=== PATIENT | male | born 1990 | race Caucasian/White ===

== ENCOUNTER 2017-01-06 17:48 | Emergency (ER) | payer MEDICAID ==
[~2017-01-06] VITALS: Ht 195.6 cm; Wt 79.8 kg
[~2017-01-06 17:48] MED LIST: AGM875T PO; BUSP5TAB59 PO; DIVA500T7 PO; DOCU100T2 PO; LACO150T3 PO; LEVO137T17 PO; MONT10TA24 PO; SENN1TAB76 PO; SERT100T PO; TRAZ-144 PO
--- OUTSIDE RECORDS SUMMARY | 2017-01-06 17:54 | XMS REPORT ---
Author MIRTA Enriquez e[employer] Address Unknown Phone Unavailable Care Team Providers Care Label Remover Name Role Phone MIRTA HERRING CP Unavailable Allergies, Adverse Reactions, Alerts Substance Reaction Event Type N.K.D.A. Info Not Available Non Drug Allergy Problems Problem Type Condition Code Onset Dates Condition Status Assessment Encounter for dental examination Z01.20 Active Problem Encounter for dental examination Z01.20 Active Medications Medication Code System Code Instructions Start Date End Date Status Dosage Tab-A-Sarah [facility] [address]-13 Orally Once a day 1 tablet Trazodone HCl [facility] [address]-40 50 MG Orally Once a day 1 tablet at bedtime as needed Sertraline HCl [facility] [address]-01 100 MG Orally Once a day 1 tablet Senna [facility] [address]-94 8.6 MG Orally Once a day 2 tablets at bedtime as needed Divalproex Sodium [facility] [address]-79 500 MG Orally Once a day 1 tablet Montelukast Sodium [facility] [address]-36 10 MG Orally Once a day 1 tablet in the evening Levothyroxine Sodium [facility] [address]-35 137 MCG Orally Once a day 1 tablet Docusate Sodium [facility] [address]-49 100 MG Orally Once a day 1 capsule as needed Vimpat [facility] [address]-10 100 MG Orally Once a day 1 tablet Procedures Procedure Coding System Code Date TOPICAL FLUORIDE VARNISH CPT-4 D1206 Dec 14, 2015 PROPHYLAXIS - ADULT CPT-4 D1110 Dec 14, 2015 Vital Signs Date/Time: Dec 14, 2015 Blood Pressure Diastolic 68 mmHg Blood Pressure Systolic 115 mmHg Cardiac Monitoring Heart Rate 67 bpm Results No Known Results Summary Purpose eClinicalWorks Submission
--- OUTSIDE RECORDS SUMMARY | 2017-01-06 17:55 | XMS REPORT ---
Author Author SAAD TYLER [facility] e[employer] Address Unknown Phone Unavailable Care Team Providers Care Ultrasound Tech Name Role Phone SAAD TYLER CP Unavailable Allergies, Adverse Reactions, Alerts Substance Reaction Event Type N.K.D.A. Info Not Available Non Drug Allergy Problems Problem Type Condition Code Onset Dates Condition Status Assessment Dental examination Z01.20 Active Medications Medication Code System Code Instructions Start Date End Date Status Dosage Senna [facility] [address]-59 8.6 MG Orally Once a day 2 tablets at bedtime as needed Trazodone HCl [facility] [address]-52 50 MG Orally Once a day 1 tablet at bedtime as needed Montelukast Sodium [facility] [address]-98 10 MG Orally Once a day 1 tablet in the evening Divalproex Sodium [facility] [address]-91 500 MG Orally Once a day 1 tablet Vimpat [facility] [address]-27 100 MG Orally Once a day 1 tablet Sertraline HCl [facility] [address]-61 100 MG Orally Once a day 1 tablet Docusate Sodium [facility] [address]-00 100 MG Orally Once a day 1 capsule as needed Levothyroxine Sodium [facility] [address]-12 137 MCG Orally Once a day 1 tablet Tab-A-Sarah [facility] [address]-68 Orally Once a day 1 tablet Procedures Procedure Coding System Code Date Billing Notes on claim CPT-4 EC109 August 04, 2015 [facility] SURFACE [facility]/PERM CPT-4 D2140 August 04, 2015 Vital Signs Date/Time: August 04, 2015 Blood Pressure Diastolic 90 mmHg Blood Pressure Systolic 131 mmHg Results No Known Results Summary Purpose eClinicalWorks Submission
--- OUTSIDE RECORDS SUMMARY | 2017-01-06 17:55 | XMS REPORT ---
Author Author HOLDEN HADDAD [facility] Address [address] [place] [address] Care Team Providers Care Virtual Assistant Name Role Phone HOLDEN HADDAD Unavailable PROBLEMS Type Condition ICD9-CM Code [id number] Code Onset Dates Condition Status SNOMED Code Problem Dental examination Z01.20 Active 014234210 ALLERGIES No Known Allergies SOCIAL HISTORY Never Assessed PLAN OF CARE Activity Details Follow Up 6 Months Reason:dental hygiene recare. VITAL SIGNS Blood pressure systolic 130 mmHg 2016 Blood pressure diastolic 93 mmHg 2016 MEDICATIONS Medication Instructions Dosage Frequency Start Date End Date Duration Status Senna 8.6 MG Orally Once a day 2 tablets at bedtime as needed 24h Active Tab-A-Sarah Orally Once a day 1 tablet 24h Active Docusate Sodium 100 MG Orally Once a day 1 capsule as needed 24h Active BusPIRone HCl Active Vimpat 100 MG Orally Once a day 1 tablet 24h Active Sertraline HCl 100 MG Orally Once a day 1 tablet 24h Active Trazodone HCl 50 MG Orally Once a day 1 tablet at bedtime as needed 24h Active Divalproex Sodium 500 MG Orally Once a day 1 tablet 24h Active Montelukast Sodium 10 MG Orally Once a day 1 tablet in the evening 24h Active Levothyroxine Sodium 137 MCG Orally Once a day 1 tablet 24h Active RESULTS No Results PROCEDURES Procedure Date Ordered Result Body Site INTRAORL-PERIAPICAL 1 FILM 49926 2016 BITEWINGS - FOUR FILMS 2016 TOPICAL FLUORIDE VARNISH 2016 PROPHYLAXIS - ADULT 2016 IMMUNIZATIONS No Known Immunizations MEDICAL (GENERAL) HISTORY Type Description Date Medical History Hypothyrodism Medical History Seizures Medical History unspecified mood disorder Medical History autism Medical History severe intellectual disorder Medical History anxiety
--- OUTSIDE RECORDS SUMMARY | 2017-01-06 17:56 | XMS REPORT | Continuity of Care Document ---
Author Author [facility] Organization [facility] Address Unknown Phone Unavailable Allergies Active Description Code Type Severity Reaction Onset Reported/Identified Relationship to Patient Clinical Status Yes No Known Drug Allergies [id number] Drug Allergy Unknown N/ A 08/29/2014 Medications Problems Date Dx Coded Attending Type Code Diagnosis Diagnosed By 08/29/2014 FELIPA ARCE APRN Ot 873.42 08/29/2014 FELIPA ARCE APRN Ot E000.8 08/29/2014 FELIPA ARCE APRN Ot E849.0 08/29/2014 FELIPA ARCE APRN Ot E968.7 08/29/2014 FELIPA ARCE APRN Ot V06.5 Procedures Results Encounters ACCT No. Visit Date/Time Discharge Status Pt. Type Provider Facility Loc./Unit Complaint [id number] 08/29/2014 10:20:00 2014 11:00:00 DIS Emergency FELIPA ARCE APRN [facility] ER [id number] 01/06/2017 17:51:00 ACT Emergency JACQUELINE BAKER MD [facility] ER FEVER
--- NOTE | 2017-01-06 18:44 | ED Fever ---
History of Present Illness General Chief Complaint: Fever-Adult/Adol Stated Complaint: FEVER Nursing Triage Note: caregiver reports pt sounded congested, felt hot, and looked like he didnt feel good. temp at home 101.8. tylenol 1000mg given lighter captain. instructed by [facility] RN to come to hospital. Sepsis Screen: Possible Sepsis Risk Source: patient, caregiver Exam Limitations: no limitations History of Present Illness Time seen by provider: 18:43 Initial Comments To ER accompanied by caregiver. Patient is a resident of [facility]. They noticed that he had a fever earlier today with nasal congestion. Maximum temperature 101.8. He received Tylenol just before coming to the emergency room. Timing/Duration: constant Fever Quality: greater than 100.5 F Fever Therapy STULL INSTALLER: Tylenol Allergies and Home Medications Allergies Coded Allergies: cefuroxime (Verified Allergy, Unknown, 01/06/17) Home Medications Amoxicillin/Clavulanate K 875 Mg Tab, 1 TAB PO BID, #14 Prescribed by: FELIPA ARCE on 08/29/14 1044 Buspirone Hcl 5 Mg Tab, 5 MG PO TID, (Reported) Cefdinir 300 Mg Capsule, 300 MG PO BID, #14 Prescribed by: FELIPA ARCE on 01/06/17 1949 Divalproex Sodium 500 Mg Tablet.dr, 500 MG PO TID, (Reported) Docusate Sodium 100 Mg Tablet, 100 MG PO DAILY, (Reported) Lacosamide 150 Mg Tablet, 100 MG PO BID, (Reported) Levothyroxine Sodium 137 Mcg Tablet, 137 MCG PO DAILY, (Reported) Montelukast Sodium 10 Mg Tablet, 10 MG PO DAILY, (Reported) Senna 1 Ea Tablet, 1 EA PO DAILY, (Reported) Sertraline Hcl 100 Mg Tablet, 100 MG PO DAILY, (Reported) Trazodone Hcl 50 Mg Tablet, 50 MG PO HS, (Reported) Constitutional: see HPI EENTM: see HPI Respiratory: no symptoms reported Cardiovascular: no symptoms reported Genitourinary: no symptoms reported Musculoskeletal: no symptoms reported Skin: no symptoms reported Psychiatric/Neurological: No Symptoms Reported Hematologic/Lymphatic: No Symptoms Reported Immunological/Allergic: no symptoms reported Past Doobany-Bplyof-Bknnym Hx Patient Social History Alcohol Use: Denies Use Recreational Drug Use: No Smoking Status: Never a Smoker Recent Foreign Travel: No Contact w/Someone Who Travel: No Recent Infectious Disease Expo: No Recent Hopitalizations: No Physical Abuse: No Sexual Abuse: No Mistreated: No Fear: No Seasonal Allergies Seasonal Allergies: Yes (chronic sinusitis) Surgeries History of Surgeries: No Respiratory History of Respiratory Disorde: No Cardiovascular History of Cardiac Disorders: No Neurological History of Neurological Disord: Yes Neurological Disorders: Seizure Disorder Genitourinary History of Genitourinary Disor: No Gastrointestinal History of Gastrointestinal Di: No Musculoskeletal History of Musculoskeletal Dis: No Endocrine History of Endocrine Disorders: Yes Endocrine Disorders: Hypothyroidsim HEENT History of HEENT Disorders: No Psychosocial History of Psychiatric Problem: Yes (autistic, affective disorder, severe intellectual disability) Behavioral Health Disorders: Sleep Difficulties, Anxiety, Depression Suicide Risk Score: 1 Integumentary History of Skin or Integumenta: No Physical Exam Vital Signs Vital Sign - Last 12Hours 01/06/17 18:02 Temp 100.0 Pulse 87 Resp 22 B/P (MAP) 131/96 Pulse Ox 98 O2 Delivery Room Air Capillary Refill : Less Than 3 Seconds General Appearance: WD/WN, no apparent distress Eyes: Bilateral Eye Normal Inspection, Bilateral Eye PERRL, Bilateral Eye EOMI HEENT: PERRL/EOMI, normal ENT inspection, TMs normal, pharyngeal erythema ( note uvular deviation to suggest peritonsillar abscess.) Neck: lymphadenopathy (R), lymphadenopathy (L) (left greater than right) Respiratory: normal breath sounds, no respiratory distress, no accessory muscle use Cardiovascular: regular rate, rhythm, no murmur Gastrointestinal: normal bowel sounds, non tender, soft Neurologic/Psychiatric: alert, normal mood/affect, oriented x 3 Skin: normal color, warm/dry Progress/Results/Core Measures Suspected Sepsis Recent Fever Within 48 Hours: Yes Infection Criteria Present: Suspected New Infection New/Unexplained Altered Menta: No Sepsis Screen: Possible Sepsis Risk Sepsis Diagnosis: SIRS Temperature:100.0 Pulse: 87 Respiratory Rate: 22 Laboratory Tests 01/06/17 19:30: White Blood Count 12.7H Blood Pressure 131 /96 Mean: 108 Laboratory Tests 01/06/17 19:30: Platelet Count 168 Results/Orders Lab Results Laboratory Tests Test 01/06/17 18:36 01/06/17 18:56 01/06/17 19:30 Range/Units Group A Streptococcus Screen NEGATIVE NEGATIVE Urine Color YELLOW Urine Clarity CLEAR Urine pH 8 5-9 Urine Specific Agate 1.010 L 1.016-1.022 Urine Protein NEGATIVE NEGATIVE Urine Glucose (UA) NEGATIVE NEGATIVE Urine Ketones 1+ H NEGATIVE Urine Nitrite NEGATIVE NEGATIVE Urine Bilirubin NEGATIVE NEGATIVE Urine Urobilinogen NORMAL NORMAL MG/DL Urine Leukocyte Esterase 1+ H NEGATIVE Urine RBC (Auto) NEGATIVE NEGATIVE Urine RBC NONE /HPF Urine WBC NONE /HPF Urine Squamous Epithelial Cells RARE /HPF Urine Crystals NONE /LPF Urine Bacteria NEGATIVE /HPF Urine Casts NONE /LPF Urine Mucus NEGATIVE /LPF Urine Culture Indicated NO White Blood Count 12.7 H 4.3-11.0 10^3/uL Red Blood Count 4.78 4.35-5.85 10^6/uL Hemoglobin 15.0 13.3-17.7 G/DL Hematocrit 42 40-54 % Mean Corpuscular Volume 87 80-99 FL Mean Corpuscular Hemoglobin 31 25-34 PG Mean Corpuscular Hemoglobin Concent 36 32-36 G/DL Red Cell Distribution Width 12.1 10.0-14.5 % Platelet Count 168 130-400 10^3/uL Mean Platelet Volume 10.1 7.4-10.4 FL Neutrophils (%) (Auto) 76 H 42-75 % Lymphocytes (%) (Auto) 13 12-44 % Monocytes (%) (Auto) 11 0-12 % Eosinophils (%) (Auto) 0 0-10 % Basophils (%) (Auto) 0 0-10 % Neutrophils # (Auto) 9.7 H 1.8-7.8 X 10^3 Lymphocytes # (Auto) 1.6 1.0-4.0 X 10^3 Monocytes # (Auto) 1.4 H 0.0-1.0 X 10^3 Eosinophils # (Auto) 0.0 0.0-0.3 10^3/uL Basophils # (Auto) 0.0 0.0-0.1 10^3/uL Monoscreen NEGATIVE NEGATIVE Micro Results Microbiology 01/06/17 Influenza Types A,B Antigen (DOROTEO) - Final, Complete My Orders Orders - FELIPA ARCE DIRECTOR RECREATION Cbc With Automated Diff (01/06/17 18:11) Influenza A And B Antigens (01/06/17 18:11) Monotest (01/06/17 18:11) Rapid Strep A Screen (01/06/17 18:11) Chest Pa/Lat (2 View) (01/06/17 18:11) Ua Culture If Indicated (01/06/17 18:11) Cephalexin Capsule (Keflex Capsule) (01/06/17 20:00) Amoxicillin Capsule (Polymox Capsule) (01/06/17 20:01) Vital Signs/I&O Vital Sign - Last 12Hours 01/06/17 18:02 Temp 100.0 Pulse 87 Resp 22 B/P (MAP) 131/96 Pulse Ox 98 O2 Delivery Room Air Capillary Refill : Less Than 3 Seconds Blood Pressure Mean: 108 Diagnostic Imaging Diagonstic Imaging: Xray Plain Films/CT/US/NM/MRI: chest Comments NAME: ZAKI PUGH [facility] REC#: [id number] PT STATUS: REG ER : 1990 PHYSICIAN: FELIPA ARCE APRN ADMIT DATE: 01/06/17/ER Draft Date of Exam:01/06/17 CHEST PA/LAT (2 VIEW) EXAM: CHEST PA/LAT (2 VIEW) INDICATION: Fever. COMPARISON: None. FINDINGS: Normal heart size and pulmonary vascularity. Mild interstitial opacities and bronchial wall thickening. No dense consolidation, pleural effusion or pneumothorax. IMPRESSION: Interstitial opacities and bronchial wall thickening consistent with small airway inflammation. No focal consolidation. Dictated on workstation # [id number] Dict: 01/06/178 Trans: 01/06/17 185 MARY ANNE [id number] Interpreted by: LEONA MCCARTHY MD Electronically signed by: Departure Communication (Admissions) Progress Notes At the time of discharge caregiver reports patient is allergic to Ceftin. The Keflex here was discontinued, the prescription for Omnicef will be discontinued and we will use amoxicillin 500 mg by mouth 3 times a day number [address] I did hand write this prescription Impression Impression: Primary Impression: Febrile illness Additional Impression: Pharyngitis Disposition: HOME, SELF-CARE Condition: Stable Departure-Patient Inst. Decision time for Depature: 19:48 Referrals: DOROTEO CARD MD (PCP/Family) Primary Care Physician Patient Instructions: NO INSTRUCTIONS GIVEN Add. Discharge Instructions: 1. Get Tylenol and Motrin as needed for fever control. Fevers may persist for a few more dayS if this is viral 2 . Antibiotics as directed 3. Return to ER for any worsening 4. Follow-up with his doctor next week All discharge instructions reviewed with patient and/or family. Voiced understanding. Scripts Cefdinir (Cefdinir) 300 Mg Capsule 300 MG PO BID, #14 CAP Prov: FELIPA ARCE APRN 01/06/17 FELIPA ARCE APRN Jan 06, 2017 18:44
--- NOTE | 2017-01-06 18:51 | Diagnostic Imaging Report ---
EXAM: CHEST PA/LAT (2 VIEW) INDICATION: Fever. COMPARISON: None. FINDINGS: Normal heart size and pulmonary vascularity. Mild interstitial opacities and bronchial wall thickening. No dense consolidation, pleural effusion or pneumothorax. IMPRESSION: Interstitial opacities and bronchial wall thickening consistent with small airway inflammation. No focal consolidation. Dictated by: Dictated on workstation # [id number]
[2017-01-06 19:03] LABS: BILIRUBIN,URINE NEGATIVE (NEGATIVE); KETONES,URINE 1+ (NEGATIVE); LEUKOCYTE ESTERASE ,URINE 1+ (NEGATIVE); NITRITE,URINE NEGATIVE (NEGATIVE); PH,URINE 8 (5-9); PROTEIN,URINE NEGATIVE (NEGATIVE); UROBILINOGEN,URINE NORMAL (NORMAL)
[2017-01-06 19:12] LABS: SQUAMOUS EPITHELIAL CELL,UR RARE /HPF
[2017-01-06 19:37] LABS: BASOPHILS % (AUTO) 0 % (0-10); EOSINOPHILS % (AUTO) 0 % (0-10); LYMPHOCYTES # (AUTO) 1.6 X 10^3 (1.0-4.0); LYMPHOCYTES % (AUTO) 13 % (12-44); MEAN CORPUSCULAR HEMOGLOBIN 31 PG (25-34); MEAN CORPUSCULAR HGB CONC 36 G/DL (32-36); MEAN CORPUSCULAR VOLUME 87 FL (80-99); MEAN PLATELET VOLUME 10.1 FL (7.4-10.4); MONOCYTES # (AUTO) 1.4 X 10^3 (0.0-1.0); MONOCYTES % (AUTO) 11 % (0-12); NEUTROPHILS # (AUTO) 9.7 X 10^3 (1.8-7.8); NEUTROPHILS % (AUTO) 76 % (42-75); PLATELET COUNT 168 10^3/uL (130-400); RED BLOOD COUNT 4.78 10^6/uL (4.35-5.85); RED CELL DISTRIBUTION WIDTH 12.1 % (10.0-14.5); WHITE BLOOD COUNT 12.7 10^3/uL (4.3-11.0)
[2017-01-06] MEDS ORDERED: CEFD300C3 PO (19:49)
[2017-01-06] MEDS ORDERED: CEPHALEXIN 250 MG (KEFLEX) CAP PO ONE (20:00)
[2017-01-06] MEDS ORDERED: AMOXICILLIN 500 MG (POLYMOX) CAP PO STA (20:01)
[2017-01-06 20:05] VITALS: BP 124/89
== END 2017-01-06 20:05 | disposition home or self-care (01) ==
LOC: EDUNIT# 17:48 → ER 17:51
DX: J02.9 Acute pharyngitis, unspecified (principal); F41.9 Anxiety disorder, unspecified; F32.9 Major depressive disorder, single episode, unspecified; E03.9 Hypothyroidism, unspecified; G40.909 Epilepsy, unspecified, not intractable, without status epilepticus; G47.9 Sleep disorder, unspecified
CPT/HCPCS: 36415; 71020; 81000; 85025; 86308; 87430; 87804; 99283

== ENCOUNTER → 2020-07-29 | Outpatient (CLI) | payer MEDICAID ==
[~2020-07-29] MED LIST changes: +CEFD300C3 PO
--- NOTE | 2020-07-29 10:50 | Diagnostic Imaging Report ---
EXAMINATION: Bilateral hands at 1030 hours. INDICATION: Hand swelling. 3 views of both hands were obtained. There are no prior studies available for comparison. FINDINGS: There is no fracture, dislocation or acute bony abnormality evident. There do not appear to be any significant degenerative changes involving the hand and the osseous structures seem well mineralized. The soft tissues are unremarkable. There is no sign of a radiopaque foreign body. IMPRESSION: 1. There is no acute bony abnormality of either hand. 2. There does not appear to be any significant degenerative changes and the osseous structure seem well mineralized. Dictated by: Dictated on workstation # [id number]
== END ==
LOC: RAD 10:08
PROVIDERS: ATTEND Family Medicine
DX: M79.89 Other specified soft tissue disorders (principal)

== ENCOUNTER 2021-06-09 12:10 | Emergency (ER) | payer MEDICAID ==
[~2021-06-09] VITALS: Ht 190.5 cm; Wt 113.4 kg
--- NOTE | 2021-06-09 12:25 | ED Psychosocial ---
General Stated Complaint: AGITATED Source: patient Exam Limitations: no limitations History of Present Illness Date Seen by Provider: Jun 09, 2021 Time Seen by Provider: 12:06 Initial Comments The patient presents to the ER by EMS from [facility] with chief complaint that he is having some agitation and becoming aggressive with staff and police were called. This calm him down initially but soon as they left he became aggressive again. By time EMS arrived they said he was sitting on a chair out from in handcuffs screaming. The EMS established an IV gave him 2 mg of Ativan. He was agitated for them but they said he was never acting aggressive or mean towards them. He has a history of severe intellectual disabilities, autism and staff states he was having some behaviors yesterday that started to escalate but went away. They said he was going after staff grabbing at the and being aggressive. They said this morning after he was dropped off at [facility] he started these behaviors again. He is not on any antipsychotic medications however he does take Depakote for seizure disorder. Caregiver, From [facility] came by and states that he has these agitation episodes about every 6 months and they were looking for some kind of as needed that might help stave it off because they can see it coming. She said today while he was at [facility] another client walked by and said, "move please,"and this set him off and made him become violent and agitated. She says they can see it coming but they do not have anything for behaviors. Allergies and Home Medications Allergies Coded Allergies: cefuroxime (Verified Allergy, Unknown, 01/06/17) Patient Home Medication List Home Medication List Reviewed: Yes Amoxicillin/Clavulanate K (Augmentin 875 Mg Tablet) 875 Mg Tab, 1 TAB PO BID Prescribed by: FELIPA ARCE on 08/29/14 104 Buspirone Hcl (Buspar Tablet) 5 Mg Tab, 5 MG PO TID, (Reported) Entered as Reported by: AUGUSTO BOOTH on 08/29/14 103 Cefdinir (Cefdinir) 300 Mg Capsule, 300 MG PO BID Prescribed by: FELIPA ARCE on 01/06/17 194 Divalproex Sodium (Divalproex Sodium) 500 Mg Tablet.dr, 500 MG PO TID, (Reported) Entered as Reported by: AUGUSTO BOOTH on 08/29/14 103 Docusate Sodium (Docusate Sodium) 100 Mg Tablet, 100 MG PO DAILY, (Reported) Entered as Reported by: AUGUSTO BOOTH on 08/29/14 103 Lacosamide (Vimpat) 150 Mg Tablet, 100 MG PO BID, (Reported) Entered as Reported by: AUGUSTO BOOTH on 08/29/14 103 Levothyroxine Sodium (Levothyroxine 137 MCG Tab) 137 Mcg Tablet, 137 MCG PO DAILY, (Reported) Entered as Reported by: AUGUSTO BOOTH on 08/29/14 103 Lorazepam (Ativan) 2 Mg Tablet, 2 MG PO Q8H PRN for AGITATION Prescribed by: KOKI SMITH on 06/09/21 1245 Montelukast Sodium (Montelukast Sodium) 10 Mg Tablet, 10 MG PO DAILY, (Reported) Entered as Reported by: AUGUSTO BOOTH on 08/29/14 103 Senna (Senokot S Tablet) 1 Ea Tablet, 1 EA PO DAILY, (Reported) Entered as Reported by: AUGUSTO BOOTH on 08/29/14 103 Sertraline Hcl (Sertraline Hcl) 100 Mg Tablet, 100 MG PO DAILY, (Reported) Entered as Reported by: AUGUSTO BOOTH on 08/29/14 103 Trazodone Hcl (Trazodone Hcl) 50 Mg Tablet, 50 MG PO HS, (Reported) Entered as Reported by: AUGUSTO BOOTH on 08/29/14 103 Review of Systems Constitutional: No chills, No diaphoresis EENTM: No ear discharge, No ear pain Respiratory: No cough, No short of breath Cardiovascular: No chest pain, No edema Gastrointestinal: No abdominal pain, No nausea, No vomiting Genitourinary: No discharge, No dysuria Musculoskeletal: No back pain, No joint pain Skin: No pruritus, No rash All Other Systems Reviewed Negative Unless Noted: Yes Past Gyffajf-Pecorr-Iapjcb Hx Patient Social History Tobacco Use?: No Use of E-Cig and/or Vaping dev: No Seasonal Allergies Seasonal Allergies: Yes (chronic sinusitis) Past Medical History Surgeries: No Respiratory: No Cardiac: No Neurological: Yes Seizure Disorder Genitourinary: No Gastrointestinal: No Musculoskeletal: No Endocrine: Yes Hypothyroidsim HEENT: No Psychosocial: Yes (autistic, affective disorder, severe intellectual disability) Sleep Difficulties, Anxiety, Depression Integumentary: No Physical Exam Vital Signs - First Documented 06/09/21 12:10 Pulse 99 Resp 16 B/P (MAP) 137/70 (92) Pulse Ox 94 O2 Delivery Room Air Capillary Refill : Height, Weight, BMI Height: 6'5.00" Weight: 176lbs. oz. [id number]; BMI Method:Stated General Appearance: WD/WN, no apparent distress HEENT: PERRL/EOMI, normal ENT inspection, pharynx normal Neck: full range of motion, supple, normal inspection Respiratory: lungs clear, normal breath sounds, no respiratory distress, no accessory muscle use Cardiovascular: normal peripheral pulses, regular rate, rhythm Gastrointestinal: normal bowel sounds, non tender, soft Neurologic/Psychiatric: alert; No normal mood/affect (Mildly agitated but cooperative, calm); other (Oriented to self, repeats questions asked to him and will answer yes or no to some questions.) Behavior/Eye Contact: cooperative, good eye contact Skin: normal color, warm/dry Progress/Results/Core Measures Results/Orders Lab Results Laboratory Tests Test 06/09/21 13:27 Range/Units White Blood Count 8.0 4.3-11.0 10^3/uL Red Blood Count 5.45 4.30-5.52 10^6/uL Hemoglobin 16.5 13.3-17.7 g/dL Hematocrit 48 40-54 % Mean Corpuscular Volume 89 80-99 fL Mean Corpuscular Hemoglobin 30 25-34 pg Mean Corpuscular Hemoglobin Concent 34 32-36 g/dL Red Cell Distribution Width 12.4 10.0-14.5 % Platelet Count 205 130-400 10^3/uL Mean Platelet Volume 9.2 9.0-12.2 fL Immature Granulocyte % (Auto) 1 % Neutrophils (%) (Auto) 65 42-75 % Lymphocytes (%) (Auto) 22 12-44 % Monocytes (%) (Auto) 10 0-12 % Eosinophils (%) (Auto) 1 0-10 % Basophils (%) (Auto) 1 0-10 % Neutrophils # (Auto) 5.2 1.8-7.8 10^3/uL Lymphocytes # (Auto) 1.8 1.0-4.0 10^3/uL Monocytes # (Auto) 0.8 0.0-1.0 10^3/uL Eosinophils # (Auto) 0.0 0.0-0.3 10^3/uL Basophils # (Auto) 0.1 0.0-0.1 10^3/uL Immature Granulocyte # (Auto) 0.1 0.0-0.1 10^3/uL Sodium Level 138 135-145 MMOL/L Potassium Level 3.7 3.6-5.0 MMOL/L Chloride Level 103 98-107 MMOL/L Carbon Dioxide Level 21 21-32 MMOL/L Anion Gap 14 5-14 MMOL/L Blood Urea Nitrogen 11 7-18 MG/DL Creatinine 0.77 0.60-1.30 MG/DL Estimat Glomerular Filtration Rate 123 BUN/Creatinine Ratio 14 Glucose Level 84 70-105 MG/DL Calcium Level 9.8 8.5-10.1 MG/DL Corrected Calcium 8.5-10.1 MG/DL Total Bilirubin 0.5 0.1-1.0 MG/DL Aspartate Amino Transf (AST/SGOT) 24 5-34 U/L Alanine Aminotransferase (ALT/SGPT) 28 0-55 U/L Alkaline Phosphatase 52 40-136 U/L C-Reactive Protein High Sensitivity 0.23 0.00-0.50 MG/DL Total Protein 7.5 6.4-8.2 GM/DL Albumin 4.7 H 3.2-4.5 GM/DL Valproic Acid (Depakene) Level 85.4 50.0-100.0 UG/ML My Orders Orders - KOKI SMITH General/Regular (06/09/21 Lunch) Cbc With Automated Diff (06/09/21 13:08) Comprehensive Metabolic Panel (06/09/21 13:08) Hs C Reactive Protein (06/09/21 13:08) Valproic Acid (06/09/21 13:08) Vital Signs/I&O 06/09/21 12:10 Pulse 99 Resp 16 B/P (MAP) 137/70 (92) Pulse Ox 94 O2 Delivery Room Air Progress Progress Note : Time: 12:26 Progress Note We gave him a glass of water and put on some cartoons for him to watch. Return to get him something to eat since it is lunchtime and observe him for a short while. He does not give any meaningful history Beyond answering yes or no to review of systems type questions. Departure Impression Primary Impression: Agitation Disposition: 01 HOME, SELF-CARE Condition: Stable Departure-Patient Inst. Decision time for Depature: 14:15 Referrals: NO,LOCAL PHYSICIAN (PCP/Family) Primary Care Physician Patient Instructions: NO INSTRUCTIONS GIVEN Add. Discharge Instructions: Ativan 2 mg every 8 hours by mouth as needed for onset of agitation. Follow-up with primary care doctor or psychiatrist for a recheck for behavior management in the next 2 to 4 weeks. Scripts Lorazepam (Ativan) 2 Mg Tablet 2 MG PO Q8H PRN for AGITATION for 7 Days, #12 TAB 0 Refills Prov: KOKI SMITH 06/09/21 KOKI SMITH Jun 09, 2021 12:25
[2021-06-09] MEDS ORDERED: LORA-407 PO (12:44)
[2021-06-09 13:33] LABS: BASOPHILS # (AUTO) 0.1 10^3/uL (0.0-0.1); BASOPHILS % (AUTO) 1 % (0-10); EOSINOPHILS % (AUTO) 1 % (0-10); HEMATOCRIT 48 % (40-54); HEMOGLOBIN 16.5 g/dL (13.3-17.7); LYMPHOCYTES # (AUTO) 1.8 10^3/uL (1.0-4.0); LYMPHOCYTES % (AUTO) 22 % (12-44); MEAN CORPUSCULAR HEMOGLOBIN 30 pg (25-34); MEAN CORPUSCULAR HGB CONC 34 g/dL (32-36); MEAN CORPUSCULAR VOLUME 89 fL (80-99); MEAN PLATELET VOLUME 9.2 fL (9.0-12.2); MONOCYTES # (AUTO) 0.8 10^3/uL (0.0-1.0); MONOCYTES % (AUTO) 10 % (0-12); NEUTROPHILS # (AUTO) 5.2 10^3/uL (1.8-7.8); NEUTROPHILS % (AUTO) 65 % (42-75); PLATELET COUNT 205 10^3/uL (130-400)
[2021-06-09 13:51] LABS: ALBUMIN 4.7 GM/DL (3.2-4.5); CHLORIDE 103 MMOL/L (98-107); POTASSIUM 3.7 MMOL/L (3.6-5.0); SODIUM 138 MMOL/L (135-145)
[2021-06-09 13:52] LABS: CALCIUM 9.8 MG/DL (8.5-10.1)
[2021-06-09 13:54] LABS: GLUCOSE 84 MG/DL (70-105); TOTAL PROTEIN 7.5 GM/DL (6.4-8.2)
[2021-06-09 13:55] LABS: BILIRUBIN,TOTAL 0.5 MG/DL (0.1-1.0); CARBON DIOXIDE 21 MMOL/L (21-32)
[2021-06-09 13:57] LABS: ALKALINE PHOSPHATASE 52 U/L (40-136); CREATININE SERUM 0.77 MG/DL (0.60-1.30); GFR ESTIMATED 123
[2021-06-09 13:58] LABS: BUN/CREATININE RATIO 14
[2021-06-09 14:00] LABS: ALANINE AMINOTRANSFERASE 28 U/L (0-55)
[2021-06-09 14:06] LABS: VALPROIC ACID 85.4 UG/ML (50.0-100.0)
[2021-06-09] MEDS ORDERED: RX-LORAZEPAM (ATIVAN) 0.5 MG TAB PPK#4 PO STA (14:18)
[2021-06-09 14:35] VITALS: BP 132/71
== END 2021-06-09 14:35 | disposition home or self-care (01) ==
LOC: EDUNIT# 12:16 → ER 12:19
DX: R45.1 Restlessness and agitation (principal); G40.909 Epilepsy, unspecified, not intractable, without status epilepticus
CPT/HCPCS: 36415; 80053; 80164; 85025; 86141; 99283